=== PATIENT | male | born 1975 | race Caucasian/White ===

== ENCOUNTER 2021-04-14 19:12 | Emergency (ER) | payer OTHER ==
[2021-04-14 23:47] LABS: BASOPHIL 0.3 % (0-2); EOSINOPHIL 0.2 % (0-5); HCT 49.5 % (42.0-52.0); HGB 16.7 g/dl (13.2-18.0); LYMPHOCYTE 30.2 % (15-48); MCH 30.8 pg (25.0-31.0); MCHC 33.7 g/dL (32.0-36.0); MCV 91.2 fL (78.0-100.0); MONOCYTE 7.6 % (0-12); MPV 10.1 fL (6.0-9.5); NEUTROPHIL 61.2 % (41-80); NRBC 0; PLT 184 K/uL (150-400); RBC 5.43 M/uL (4.70-6.00); RDW 12.7 % (11.5-14.0); WBC 6.5 K/uL (4.0-10.5)
[2021-04-15 00:19] LABS: INFLUENZA A NAA NEGATIVE (NEGATIVE)
[2021-04-15 00:26] LABS: ALBUMIN 4.3 g/dL (3.4-5.0); BILIRUBIN - TOTAL 0.4 mg/dL (0.2-1.0); BUN/CREAT RATIO (CALC) 8.7 RATIO; CREATININE 1.26 mg/dL (0.67-1.17); GLOBULIN (CALCULATION) 4.1 g/dL; TOTAL PROTEIN 8.4 g/dL (6.4-8.2)
[2021-04-15 00:30] LABS: CORONAVIRUS 2019 SARS-COV-2 POSITIVE (NEGATIVE)
[2021-04-15] MEDS ORDERED: IBUPROFEN800 MG PO (03:06)
[2021-04-15] MEDS ORDERED: AUGMENTIN 875-1 EACH PO (03:06)
[2021-04-15] MEDS ORDERED: TESSALON PERLE100 MG PO (03:06)
[2021-04-15] MEDS ORDERED: VENTOLIN HFA IN18 GM INH (03:06)
[2021-04-15] MEDS ORDERED: PEPCID AC20 MG PO (03:06)
[2021-04-15] MEDS ORDERED: ONDANSETRON ODT4 MG SL (03:06)
== END 2021-04-15 03:20 | disposition home or self-care (01) ==
LOC: FER 19:12
PROVIDERS: Emergency Medicine Emergency Medical Services
DX: U07.1 COVID-19 (principal); J12.82 Pneumonia due to coronavirus disease 2019; K57.92 Diverticulitis of intestine, part unspecified, without perforation or abscess without bleeding; Z23 Encounter for immunization
CPT/HCPCS: 36415; 71045; 80053; 82728; 85025; 94640; 94664; J0696; J1885; J7120; M0243; Q0244; U0002

== ENCOUNTER 2021-04-17 17:55 | Emergency (ER) | payer OTHER ==
[~2021-04-17 17:55] MED LIST: AUGMENTIN 875-1 EACH PO; IBUPROFEN800 MG PO; ONDANSETRON ODT4 MG SL; PEPCID AC20 MG PO; TESSALON PERLE100 MG PO; VENTOLIN HFA IN18 GM INH
[2021-04-17 19:22] LABS: BASOPHIL 0.1 % (0-2); EOSINOPHIL 0.1 % (0-5); HGB 15.4 g/dl (13.2-18.0); LYMPHOCYTE 29.5 % (15-48); MCH 30.3 pg (25.0-31.0); MCHC 34.2 g/dL (32.0-36.0); MCV 88.4 fL (78.0-100.0); MONOCYTE 9.2 % (0-12); MPV 10.1 fL (6.0-9.5); NEUTROPHIL 60.7 % (41-80); NRBC 0; PLT 261 K/uL (150-400); RBC 5.09 M/uL (4.70-6.00); RDW 12.7 % (11.5-14.0)
[2021-04-17 19:27] LABS: WBC 6.9 K/uL (4.0-10.5)
[2021-04-17 19:35] LABS: ALBUMIN 3.6 g/dL (3.4-5.0); BILIRUBIN - TOTAL 0.5 mg/dL (0.2-1.0); BUN/CREAT RATIO (CALC) 8.7 RATIO; CREATININE 0.92 mg/dL (0.67-1.17); POTASSIUM 3.7 mmol/L (3.5-5.1); TOTAL PROTEIN 7.6 g/dL (6.4-8.2)
== END 2021-04-17 22:14 | disposition home or self-care (01) ==
LOC: FER 17:55
PROVIDERS: Emergency Medicine
DX: U07.1 COVID-19 (principal); J12.82 Pneumonia due to coronavirus disease 2019
CPT/HCPCS: 36415; 71045; 71275; 80053; 84484; 85025; 85379; 93005; J1885; J2405; J7030; Q9967